=== PATIENT | male | born 1955 | race Caucasian/White ===

== ENCOUNTER 2019-04-05 23:09 | Inpatient (IN) | payer OTHER, MEDICARE, SELFPAY ==
[2019-04-05 23:15] VITALS: BMI 43.2
[2019-04-06] VITALS (13 sets, daily range): BP systolic 154–178; BP diastolic 90–102; PULSE 84–118; RESP 18–24; TEMP 36.6–36.7; O2SAT 90–96
--- NOTE | 2019-04-06 00:10 | USCV_ITS ---
Kenneth Nick Age: 63 Gender: M : 1955 Exam Date: 04/06/2019 13:04 Ordering Phys: Merlyn Love MD Technologist: Lucila Tony [place]am [place] [facility] [place]: CHF EXACERBATION BP: / HR: Rhythm: Sinus Technical Quality: Poor because of body habitus MEASUREMENTS (Male / Female) Normal Values 2D ECHO LV Diastolic Diameter PLAX 3.0 cm 4.2 - 5.9 / 3.9 - 5.3 cm LV Systolic Diameter PLAX 2.5 cm IVS Diastolic Thickness 1.9 cm 0.6 - 1.0 / 0.6 - 0.9 cm IVS Systolic Thickness 2.0 cm LVPW Diastolic Thickness 2.2 cm 0.6 - 1.0 / 0.6 - 0.9 cm LVPW Systolic Thickness 2.9 cm LVOT Diameter 2.0 cm LV Ejection Fraction 2D Teich 40.4 % LA Diameter 6.0 cm LA Width 4.1 cm LA Height 4.7 cm RA Width 3.2 cm RA Height 4.4 cm Aorta at Sinotubular Diameter 3.0 cm M-MODE LV Diastolic Diameter MM 5.1 cm 4.2 - 5.9 / 3.9 - 5.3 cm LV Systolic Diameter MM 3.6 cm LV Ejection Fraction MM Teich 55.3 % IVS Diastolic Thickness MM 1.4 cm 0.6 - 1.0 / 0.6 - 0.9 cm IVS Systolic Thickness MM 1.4 cm LVPW Diastolic Thickness MM 1.4 cm 0.6 - 1.0 / 0.6 - 0.9 cm LVPW Systolic Thickness MM 1.8 cm Aortic Annulus Diameter 3.5 cm LA Ao Ratio MM 1.7 MV E Point Septal Separation 0.6 cm DOPPLER AV Peak Velocity 157.0 cm/s LVOT Peak Velocity 108.0 cm/s AV Area Cont Eq vti 2.7 cm squared AV Area Cont Eq pk 2.2 cm squared MV Area PHT 7.6 cm squared Mitral E to A Ratio 5.0 MV E' Velocity 146.0 cm/s TR Peak Velocity 165.0 cm/s TR Peak Gradient 10.8 mmHg TV Peak E Velocity 74.0 cm/s Right Atrial Pressure 3.0 mmHg Pulmonary Artery Systolic Pressu 13.9 mmHg FINDINGS Left Ventricle Normal left ventricular cavity size. Normal left ventricular systolic function. No regional wall motion abnormalities. Left ventricular ejection fraction is estimated at 55 %. Grade III/IV diastolic dysfunction (restrictive filling pattern), severely elevated filling pressures. Right Ventricle Right Atrium Left Atrium Mitral Valve Aortic Valve Tricuspid Valve Pulmonic Valve Pericardium Aorta CONCLUSIONS Note that this is suboptimal quality study therefore for interpretation of studies not possible. 1-Normal left ventricular cavity size. Normal left ventricular systolic function. No regional wall motion abnormalities. Left ventricular ejection fraction is estimated at 55 %. Grade III/IV diastolic dysfunction (restrictive filling pattern), severely elevated filling pressures. 2-There is no pericardial effusion. 3-Cannot compared with prior exam due to suboptimal images Merlyn Alberto MD (Electronically Signed) Final Date: 06 April 2019 18:06 S
--- NOTE | 2019-04-06 00:20 | PM.HP ---
Providers/Chief Complaint Admitting Physician: Merlyn Love MD Primary Care Provider: GREG Hubbard Chief Complaint: Exacerbation of CHF History of Present Illness Nick Cooper is a 63 year old male carries diagnosis of preserved ejection fraction heart failure, hypothyroidism, obstructive sleep apnea, came in with chief complaint of shortness of breath. Patient is stating that his symptoms started on Thursday with shortness of breath which was happening at exertion initially then started happening at rest as well, he did not notice any chest pain, nausea, vomiting recent flulike symptoms, fever. He has been experiencing productive cough with yellow to greenish sputum production, he has not noticed any fever. He tries to watch his diet eats twice a day, he watches his fluid intake as well, does not take nxzz-[id number] medications. He has sleep apnea and uses CPAP on on and off basis but not daily. He is compliant with his medications no problem with urination or bowel movements. He decided to go to his PCP clinic because he was very hypoxic on 6 L at baseline he is using 2 L, he decided to go to [facility] where he was diagnosed with CHF exacerbation and was transferred to our hospital. Vitals at the other ER showed blood pressure 160/86, saturating 98% on room air initially heart rate 98, then required 4 L nasal cannula when his oxygen level dropped to 66%, temperature was normal, heart rate 113, White count 9.1 Globin 10 Platelet count 229 ABG 7.26/60 4/83 on 4 L nasal cannula Bicarb 29 INR 1 PTT 34 PT 13 Sodium 132 Potassium 4.6 Chloride 93 CO2 26 Calcium 9 BUN 37 Creatinine 1.5 Glucose 118 GFR 47 Alk phos 251 AST 22 ALT 13 BNP 1676 Magnesium 2.2 TSH 2.8 Influenza panel negative D-dimer 0.5 CRP 43 2-hour troponin 61 Delta 2-hour -4 Urinalysis color yellow pH 5 Negative leukoesterase and nitrite Protein trace positive Lactic acid 0.7 6-hour troponin 55 delta 6 hours -10 Chest x-ray shows pulmonary edema In the ER Patient was given 80 mg of Lasix, Nitro-Bid half-inch, methylprednisone 125 mg x 1, DuoNeb x1, oxycodone 20 mg x 1 When I evaluated the patient on our first floor he was on 4 L facemask, bilateral crackles with mild conversational dyspnea, he was eating a sandwich, family at the bedside, no active respiratory distress Review of Systems Const: Reports: body aches, change in weight, fatigue and malaise; Denies: fever, chills or change in appetite Eyes: Denies: change in vision ENMT: Denies: throat pain Card: Reports: edema and swelling of feet/ankles; Denies: chest pain, palpitations or irregular heart rhythm Resp: Reports: shortness of breath, productive cough and wheezing GI: Denies: abdominal pain or nausea : Denies: flank pain or difficulty urinating Musc: Denies: neck pain or back pain Skin/Breast: Denies: rash or itching Neuro: Denies: headache or numbness in extremities Psych: Denies: anxiety or depression Endo: Denies: excessive urination Sher/Lymph: Denies: easy bruising All/Imm: Denies: hives Medications/Allergies Home Medications Medication Instructions Recorded Confirmed Last Taken Type colchicine 0.6 mg PO BID 04/06/19 04/06/19 Unknown History metoprolol tartrate 100 mg PO BID 04/06/19 04/06/19 Unknown History Allergies Allergy/AdvReac Type Severity Reaction Status Date / Time ibuprofen [From Motrin] Allergy Unknown Verified 04/05/19 07:10 Influenza Virus Vaccines Allergy ALGY-Hives Verified 04/05/19 23:29 latex Allergy ALGY-Rash Verified 04/05/19 07:10 PFSH Acute PFSH: Statuses (acute, chronic, etc) shown below reflect problem list status as previously entered and may not be historically accurate Medical History (Updated 04/06/19 @ 00:59 by Merlyn Love MD) Anemia (Acute) Anxiety (Acute) CHF (congestive heart failure) (Acute) Chronic prescription opiate use (Acute) Diverticulosis (Acute) Duodenitis (Acute) Erectile dysfunction (Acute) Gastric ulcer (Acute) Heart failure with preserved ejection fraction (Acute) Hemoptysis (Acute) HTN (hypertension) (Acute) Hx of diverticulitis of colon (Acute) Hypothyroidism (Acute) Lumbar stenosis (Acute) Microcytic anemia (Acute) Morbid obesity (Acute) Obesity (Acute) Osteoarthritis (Acute) Peripheral neuropathy (Acute) Rotator cuff tear, right (Acute) Sleep apnea (Acute) Spinal cord stimulator status (Acute) Type 2 diabetes mellitus (Acute) Surgical History (Updated 04/05/19 @ 20:40 by Merlyn Love MD) History of back surgery (Acute) History of surgery on left wrist (Acute) History of total right hip replacement (Acute) History of total right knee replacement (Acute) Hx of circumcision (Acute) Family History (Updated 04/05/19 @ 20:42 by Merlyn Love MD) Grandfather Cancer Throat cancer Social History (Updated 04/05/19 @ 20:42 by Merlyn Love MD) Smoking and tobacco status: former smoker Alcohol intake: current Alcohol intake frequency: few times a week Household members: spouse Housing: House Vitals/I&O/Wt Weight last 48 hrs Weight 140.614 kg Physical Exam Narrative: EXAM NARRATIVE: Morbidly obese male, he was eating sandwich when I enter the room, he was on 4 L facemask, mild conversational dyspnea On lung auscultation diffuse crackles without active wheezing No active respiratory distress no use of respiratory sensory muscles, He has bloated abdomen, however soft, with obesity positive, bowel sounds present, Neurologically nonfocal exam, GCS 15 S1-S2 no active signs of murmur, hard to assess JVD but bilateral 1+ pitting edema extending up to his knees Appropriate mood and affect Skin does not show any signs of ischemia gangrene or ulcer A&P Assessment and plan (1) Acute exacerbation of congestive heart failure: Status: Acute Code(s): I50.9 - Heart failure, unspecified (2) Sleep apnea: Status: Acute Code(s): G47.30 - Sleep apnea, unspecified (3) COPD exacerbation: Status: Acute Code(s): J44.1 - Chronic obstructive pulmonary disease with (acute) exacerbation (4) Hypercapnic respiratory failure: Status: Acute Code(s): J96.92 - Respiratory failure, unspecified with hypercapnia (5) LORI (acute kidney injury): Status: Acute Code(s): N17.9 - Acute kidney failure, unspecified (6) Morbid obesity: Status: Acute Code(s): E66.01 - Morbid (severe) obesity due to excess calories (7) Hypothyroidism: Status: Acute Code(s): E03.9 - Hypothyroidism, unspecified Additional A&P Information Acute exacerbation of preserved ejection fraction heart failure secondary to underlying sleep apnea No chest pain, troponins with negative delta, We will get EKG Patient takes Lasix 40 mg at home I would use Bumex 1 mg twice a day for now, BNP 1600, clinically fluid overloaded He does not use [id number] medications, I believe his symptoms are secondary to worsening of sleep apnea with potential pulmonary hypertension causing worsening of heart failure BiPAP overnight Hypercarbic respiratory failure due to above-mentioned reasons: BiPAP for now Blood gas in a.m. Reduce the dose of anxiolytics I believe the symptoms are secondary to use of anxiolytics, gabapentin, obesity hypoventilation syndrome combination Morbid obesity with sleep apnea He is not very regular compliant with CPAP at home, I believe he needs another CPAP study to see if he qualifies for BiPAP because of his morbid obesity Acute kidney injury I would hold most of nephrotoxic agents, most likely secondary to prerenal due to CHF Monitor with BMP Hypothyroidism: Continue levothyroxine Borderline hyperglycemia with neuropathy due to spine injury I would reduce the dose of anxiolytics because of LORI DVT prophylaxis: Heparin Cardiac diet GI prophylaxis: Protonix Full code Attestations Medical Necessity Statement*: Admitting as inpatient because he might need more than 2 midnights because of hypercarbic respiratory failure, congestive heart failure, AK I Requiring higher dose of diuretics Bumex twice a day Time Spent in Patient Care: (>than 50% of time spent in counselling and/or direct pt care on unit). 55 Coding Level of Care Code Acute Psychosocial Rehabilitation Counselor for Candace Morris Diagnoses Acute exacerbation of congestive heart failure I50.9 Sleep apnea G47.30 COPD exacerbation J44.1 Hypercapnic respiratory failure J96.92 LORI (acute kidney injury) N17.9 Morbid obesity E66.01 Hypothyroidism E03.9
--- NOTE | 2019-04-06 00:24 | PC.NURSE ---
Patient arrived to the floor via EMS as direct admit. He is alert and oriented. He was on 4 L NC upon arrival to room. Oxygen saturation was 83%. Patient was placed on 6 L oxymask and is sating at 95%. Patient states his has a CPAP at home at night, but has not been wearing it lately. Patient states he also wears 2 L NC at home. Patient complains of 6/10 pain in hips and lower back, but states he just got an oxycodone at the other hospital and that this pain is tolerable because it is always a 6/10.
[2019-04-06] MEDS: heparin 5,000 unit/mL INJ 1 mL 5000 UNIT SUBCUT ×3 (01:32→17:31)
--- NOTE | 2019-04-06 01:39 | PC.NURSE ---
Patient is refusing Bipap at this time.
[2019-04-06] MEDS: ipratropium-albuterol 3 mL Neb INHALATION ×4 (02:05→20:07)
[2019-04-06 04:00] LABS: Basophils % 0.2 %; Hematocrit 36.7 % (42.0-52.0); Hemoglobin 10.7 g/dL (11.7-16.6); Lymphocytes # 0.7 10^3/uL (0.8-4.8); Lymphocytes % 12.4 %; Mean Corpuscular HGB Conc 29.2 g/dL (30.0-36.0); Mean Corpuscular Volume 82.5 fL (80-94); Mean Platelet Volume 9.5 fL (7.4-10.4); Monocytes # 0.4 10^3/uL (0.2-0.9); Monocytes % 5.9 %; Neutrophils # 4.8 10^3/uL (1.8-7.7); Neutrophils % 80.3 %; Nucleated Red Blood Cells # 0.1 /100WBC; Platelet Count 236 10^3/cmm (130-400); Red Blood Count 4.45 10^6/uL (4.1-5.3); Red Cell Distribution Width 18.5 % (12.1-15.1)
[2019-04-06 04:23] LABS: Alanine Aminotransferase 14 U/L (0-41); Albumin Level 3.4 g/dL (3.5-5.2); Alkaline Phosphatase 51 IU/L (40-130); Anion Gap 17.5 (5-19); Aspartate Amino Transferase 23 U/L (0-40); Blood Urea Nitrogen 27 mg/dL (8-23); Calcium 9.6 mg/dL (8.5-10.5); Carbon Dioxide 28 mmol/L (22-29); Chloride 97 mmol/L (98-107); Globulin 3.9 g/dL (1.3-4.6); Glomerular Filtration Rate 55.6 mL/min (90-130); Glucose 151 mg/dL (74-106); Potassium 4.5 mmol/L (3.5-5.1); Sodium 138 mmol/L (136-145); Thyroid Stimulating Hormone 0.72 uIU/mL (0.27-4.20); Total Bilirubin 0.3 mg/dL (0.15-1.2); Total Protein 7.3 g/dL (6.6-8.7)
[2019-04-06 04:54] LABS: Slide Review Slide Review Perform
[2019-04-06 06:42] LABS: Glucose Point of Care 133 mg/dL (70-110)
--- NOTE | 2019-04-06 06:58 | PC.NURSE ---
Patient has been educated to use the urinal in order to measure output. Patient voided 3 times last night and did not use the urinal.
[2019-04-06] MEDS: allopurinol 100 mg Tablet 200 MG PO (09:39)
[2019-04-06] MEDS: pantoprazole DR 40 mg Tablet 20 MG PO (09:39)
[2019-04-06] MEDS: bumetanide 1 mg Tablet PO (09:39)
[2019-04-06] MEDS: levothyroxine 50 mcg Tablet PO (09:39)
--- NOTE | 2019-04-06 10:57 | PC.CHAP ---
Pastoral Care Encounter/Spiritual Assessment Type of Contact [] Declined clean rice grader and reel tender visit [] Patient/Family/Request visit [] Outpatient visit [] Follow-up visit [] Physician referral [] Code/Alert [x] Routine visit [] Staff referral [] Actively dying [] Patient sleeping [x] Family support [] [] Out of room [] Palliative care [] [] Receiving care in room [] Pre-surgical visit [] Trauma [] Long length of stay [] ICU visit [] Other: Relational/Emotional Strength [] Patient feels connected with others/family/visitors/staff [] Distress [] Loneliness/isolation [] Abandonment Spirituality of Patient [] Person of Ratna [] Attends Amish of their [place] [x] Believes in Prayer [] Reads Bible or Scientology materials [] There are Spiritual issues to be addressed Ophthalmic Medical Technician Interventions [x] Prayer [] Active listening [] Non-anxious presence [] Spiritual/emotional support [] Crisis/trauma care [] Spiritual counseling [] Bereavement support [] Provided bereavement packet [] Provided Bible/devotional materials [] Provided toy/stuffed animal, coloring book to patient or family member [x] Completed spiritual assessment [] Provided Communion [] Anointing/[place] [] Salvation [] Other: Impact on Illness or Injury [] Angry [] Fearful [] Anxious [] Often cries [] Exhaustion [] Unable to work [] Unable to attend adventist [] Unable to walk/stand [] Unable to read [] Unable to drive [] Unable to eat/drink [x] Unable to sleep [] Unable to be with family [x] Other: Patient in the hurriedness of going to [facility] emergency, left all medication at home. Summary staying very close to Patient. Patient has not slept . Randell asked staff to check into Patients mediations. Time spent with patient 15 min
[2019-04-06] MEDS: oxyCODONE 5 mg IR Tab/Cap 10 MG PO (11:24)
[2019-04-06 11:28] LABS: Glucose Point of Care 109 mg/dL (70-110)
[2019-04-06] MEDS: sucralfate 1 gm Tablet PO ×2 (14:58→22:13)
[2019-04-06] MEDS: FUROsemide 10 mg/mL SDV 4mL 40 MG IVP (14:58)
[2019-04-06] MEDS: cholecalciferol (vitamin D3) 1,000 unit Tablet 1000 UNIT PO (14:58)
[2019-04-06 15:30] LABS: NT Pro B Type Natriuretic Pept 2392 pg/mL (0-125); Procalcitonin 0.16 ng/mL (0-0.5); Thyroid Stimulating Hormone 1.23 uIU/mL (0.27-4.20)
[2019-04-06 15:41] LABS: Iron 17 ug/dL (59-158); Percent Saturation 4.2 % (20-50); Total Iron Binding Capacity 400 mcg/dl; Unsaturated Iron Binding 383 ug/dL (112-347)
[2019-04-06 16:20] LABS: Glucose Point of Care 118 mg/dL (70-110)
[2019-04-06 16:52] LABS: Influenza A by IFA Negative (Negative); Influenza B by IFA Negative (Negative)
[2019-04-06] MEDS: colchicine 0.6 mg Tablet PO (17:31)
[2019-04-06] MEDS: metoprolol tartrate 50 mg Tablet PO (17:31)
--- NOTE | 2019-04-06 18:47 | P.PN_ITS ---
Subjective Subjective: Interval history: Admitted overnight. History and physical and labs noted. On evaluation this morning patient is sitting up in bed complaining of shortness of breath and is having nonrebreather mask at 5 L nasal cannula for saturating over 94%. Patient is complaining of shortness of breath on exertion and on lying down along with cough but denies of having any nausea, vomiting, palpitations, headache. Patient's telemetry shows sinus tachycardia going up to 130s overnight. Patient otherwise is hemodynamically stable. Medications: Reviewed: Yes Medication Review Details: Home medications have not been started yet. Vitals/I&O/Wt Last Vital Signs Temp 98.0 F 04/06/19 15:53 Pulse 88 04/06/19 15:55 Resp 20 H 04/06/19 15:55 BP 154/90 04/06/19 15:53 Pulse Ox 92 04/06/19 15:55 04/06/19 04/06/19 04/06/19 06:59 14:59 22:59 Intake Total 230 / 230 240 / 240 Output Total 600 / 600 800 / 1400 Balance 230 / 230 -360 / -360 -800 / -1160 Weight last 48 hrs Weight 140.614 kg Physical Exam Narrative: EXAM NARRATIVE: Morbidly obese male, he was eating sandwich when I enter the room, he was on 5 L facemask, mild conversational dyspnea On lung auscultation diffuse crackles all over the lung trejo without active wheezing No active respiratory distress no use of respiratory sensory muscles, He has bloated abdomen, however soft, with obesity positive, bowel sounds pre sent, Neurologically nonfocal exam, GCS 15 S1-S2 no active signs of murmur, hard to assess JVD but bilateral 1+ pitting edema extending up to his knees Appropriate mood and affect Skin does not show any signs of ischemia gangrene or ulcer Data : 04/07/19 06:27 04/07/19 06:27 A&P Assessment and plan (1) Acute exacerbation of congestive heart failure: Status: Acute Code(s): I50.9 - Heart failure, unspecified (2) Sleep apnea: Status: Acute Code(s): G47.30 - Sleep apnea, unspecified (3) COPD exacerbation: Status: Acute Code(s): J44.1 - Chronic obstructive pulmonary disease with (acute) exacerbation (4) Hypercapnic respiratory failure: Status: Acute Code(s): J96.92 - Respiratory failure, unspecified with hypercapnia (5) LORI (acute kidney injury): Status: Acute Code(s): N17.9 - Acute kidney failure, unspecified (6) Hypothyroidism: Status: Acute Code(s): E03.9 - Hypothyroidism, unspecified Additional A&P Information Hypercarbic respiratory failure: MOst likley due to Acute exacerbation of Diastolic heart failure along with JONAH No inflitrate on Cxr, fever. Check Probnp, procal. Will change bumex to IV lasix 40 mg BID as kidney functions slightly deranged. Daily weights. Intake and output charting. Fluid restriction to 1.5 lts. ECHO already ordered Bipap QHS C/w Reduction the dose of anxiolytics Duonebs round the clock and budesonide BID. No real wheeze so will hold off on steroids for now. Check iron panel. For now will increase ferrous sulfate to daily. Having tachycardia so will start on home dose of metoprolol. Morbid obesity with sleep apnea He is not very regular compliant with CPAP at home. Will continue to careers counsellor. Acute kidney injury: Most likely from CRS. Avoid nephrotoxic drugs. Meds reconciled. Monitor with BMP daily. Hypothyroidism: Continue levothyroxine C/w home dose of amytriptiline to avoid withdrawal, decrease cyclobenzaprine and will hold off on oxycodone and will decrease dose of gabapentin. DVT prophylaxis: Heparin Cardiac diet GI prophylaxis: Protonix Full code Attestations Medical Necessity Statement*: Needs further hospitalization for Resp failure due to CHF Time Spent in Patient Care: Greater than 35 minutes Coding Level of Care Code Acute Chief Cloth Finishing Range Operator for Candace Morris Diagnoses Acute exacerbation of congestive heart failure I50.9 Sleep apnea G47.30 COPD exacerbation J44.1 Hypercapnic respiratory failure J96.92 LORI (acute kidney injury) N17.9 Hypothyroidism E03.9
--- NOTE | 2019-04-06 19:07 | P.CONIM_ITS ---
Providers/Reason For Consult Consulting Physican/Specialty*: Cardiology Reason for Consult*: Respiratory failure CHF exacerbation Attending Physician: Magdi Lu MD Primary Care Provider: GREG Hubbard History of Present Illness History of Present Illness Nick Cooper is a 63 year old male Whom I have seen in my clinic in June 2018 for the first and only time When he was referred to us for continuity of care after hospital discharge . He was admitted At that time for CHF and COPD exacerbation. CHF was newly diagnosed. He was ruled out for coronary artery disease with stress test then. Echocardiogram was not performed during the hospital stay. In my clinic his medicines were optimized however he did not follow-up on his treatment. Last night [facility] transferred him to [facility] for worsening of shortness of breath. According to the patient for the past couple of weeks he has been having productive sputum and cough. He also admits to PND orthopnea but denies chest pain. He was taking 40 mg of Lasix. He continues to smoke unfortunately. He was given 80 mg of IV Lasix at [facility]. Review of Systems Const: Reports: body aches, change in weight, fatigue and malaise; Denies: fever, chills or change in appetite Eyes: Denies: change in vision ENMT: Denies: throat pain Card: Reports: edema and swelling of feet/ankles; Denies: chest pain, palpitations or irregular heart rhythm Resp: Reports: shortness of breath, productive cough and wheezing GI: Denies: abdominal pain or nausea : Denies: flank pain or difficulty urinating Musc: Denies: neck pain or back pain Skin/Breast: Denies: rash or itching Neuro: Denies: headache or numbness in extremities Psych: Denies: anxiety or depression Endo: Denies: excessive urination Sher/Lymph: Denies: easy bruising All/Imm: Denies: hives Meds/Allergies Home Medications and Allergies Home Medications Medication Instructions Recorded Confirmed Type albuterol sulfate 2.5 mg INHALATION QID PRN 04/05/19 04/06/19 History alprazolam 0.25 - 0.5 mg PO DAILY 04/05/19 04/06/19 History amitriptyline 25 mg PO BEDTIME 04/05/19 04/06/19 History cyclobenzaprine 10 mg PO TID 04/05/19 04/06/19 History ferrous sulfate 325 mg PO EVERY OTHER DAY 04/05/19 04/06/19 History furosemide 40 mg PO DAILY 04/05/19 04/06/19 History gabapentin 800 mg PO TID 04/05/19 04/06/19 History levothyroxine 50 mcg PO DAILY 04/05/19 04/06/19 History pantoprazole 40 mg PO DAILY 04/05/19 04/06/19 History sucralfate 1 g PO TID 04/05/19 04/06/19 History testosterone 200 mg SUBCUT Q14D 04/05/19 04/06/19 History budesonide-formoterol 2 puff INHALATION BID 04/06/19 04/06/19 History cholecalciferol (vitamin D3) 1,000 units PO DAILY 04/06/19 04/06/19 History colchicine 0.6 mg PO BID 04/06/19 04/06/19 History metoprolol tartrate 50 mg PO BID 04/06/19 04/06/19 History oxycodone 15 mg PO Q4H PRN 04/06/19 04/06/19 History Allergies Allergy/AdvReac Type Severity Reaction Status Date / Time ibuprofen [From Motrin] Allergy Unknown Verified 04/05/19 07:10 Influenza Virus Vaccines Allergy ALGY-Hives Verified 04/05/19 23:29 latex Allergy ALGY-Rash Verified 04/05/19 07:10 Current Medications Current Medications Generic Name Dose Route Start Last Admin Trade Name Freq PRN Reason Stop Dose Admin Albuterol/Ipratropium 3 ml 04/06/19 00:10 04/06/19 08:58 Duoneb INHALATION 3 ml Q4H PRN Administration SHORTNESS OF BREATH Albuterol/Ipratropium 3 ml 04/06/19 15:00 04/06/19 15:48 Duoneb INHALATION 3 ml Q6H.RESPIRATORY CANDACE Administration Allopurinol 200 mg 04/06/19 09:00 04/06/19 09:39 Zyloprim PO 200 mg DAILY CANDACE Administration Colchicine 0.6 mg 04/06/19 18:00 04/06/19 17:31 Colcrys PO 0.6 mg BID CANDACE Administration Cyclobenzaprine HCl 10 mg 04/06/19 18:00 04/06/19 17:31 Flexeril PO Not Given BID CANDACE Furosemide 40 mg 04/06/19 14:15 04/06/19 14:58 Lasix IVP 40 mg Q12H CANDACE Administration Heparin Sodium (Beef Lung) 5,000 unit 04/06/19 00:15 04/06/19 17:31 Heparin SUBCUT 5,000 unit Q8H CANDACE Administration Levothyroxine Sodium 50 mcg 04/06/19 09:00 04/06/19 09:39 Synthroid PO 50 mcg DAILY CANADCE Administration Metoprolol Tartrate 50 mg 04/06/19 18:00 04/06/19 17:31 Lopressor PO 50 mg BID CANDACE Administration Pantoprazole Sodium 20 mg 04/06/19 09:00 04/06/19 09:39 Protonix PO 20 mg DAILY CANDACE Administration Sucralfate 1 gm 04/06/19 15:00 04/06/19 14:58 Carafate PO 1 gm TID CANDACE Administration Vitamin D 1,000 unit 04/06/19 15:00 04/06/19 14:58 Vitamin D3 PO 1,000 unit DAILY CANDACE Administration PFSH Acute PFSH: Statuses (acute, chronic, etc) shown below reflect problem list status as previously entered and may not be historically accurate Medical History (Updated 04/06/19 @ 19:18 by Merlyn Alberto MD) Anemia (Acute) Anxiety (Acute) CHF (congestive heart failure) (Acute) Chronic prescription opiate use (Acute) Diverticulosis (Acute) Duodenitis (Acute) Erectile dysfunction (Acute) Gastric ulcer (Acute) Heart failure with preserved ejection fraction (Acute) Hemoptysis (Acute) HTN (hypertension) (Acute) Hx of diverticulitis of colon (Acute) Hypothyroidism (Acute) Lumbar stenosis (Acute) Microcytic anemia (Acute) Morbid obesity (Acute) Obesity (Acute) Osteoarthritis (Acute) Peripheral neuropathy (Acute) Rotator cuff tear, right (Acute) Sleep apnea (Acute) Spinal cord stimulator status (Acute) Type 2 diabetes mellitus (Acute) Surgical History History of back surgery (Acute) History of surgery on left wrist (Acute) History of total right hip replacement (Acute) History of total right knee replacement (Acute) Hx of circumcision (Acute) Family History Grandfather Cancer Throat cancer Social History Smoking and tobacco status: former smoker Alcohol intake: current Alcohol intake frequency: few times a week Household members: spouse Housing: House Vitals/I&O/Wt Last Vital Signs Temp 98.0 F 04/06/19 15:53 Pulse 88 04/06/19 15:55 Resp 20 H 04/06/19 15:55 BP 154/90 04/06/19 15:53 Pulse Ox 92 04/06/19 15:55 04/06/19 04/06/19 04/06/19 06:59 14:59 22:59 Intake Total 230 / 230 240 / 240 Output Total 600 / 600 1200 / 1800 Balance 230 / 230 -360 / -360 -1200 / -1560 Weight last 48 hrs Weight 310 lb Physical Exam Narrative: EXAM NARRATIVE: GENERAL: Patient is short of breath and sitting. NECK: No jugular vein distension. HEENT: No cyanosis. No icterus. No pallor. HEART: Regular S1 and S2. No murmur, rub or gallop. LUNGS: Decreased breath sound bilaterally with prolonged expiration. ABDOMEN: Soft, nontender and nondistended. Positive bowel sounds. No guarding, rebound or tenderness. CENTRAL NERVOUS SYSTEM: Grossly nonfocal. EXTREMITIES: Lower extremities trace edema A&P Assessment and plan (1) COPD exacerbation: Mixed picture of COPD exacerbation/CHF. Continue as per medicine for COPD Status: Acute Code(s): J44.1 - Chronic obstructive pulmonary disease with (acute) exacerbation (2) LORI (acute kidney injury): Continue to monitor closelyWith diuresis. Status: Acute Code(s): N17.9 - Acute kidney failure, unspecified (3) Acute exacerbation of congestive heart failure: Continue diuresis as per plan with [employer]um[employer] Status: Acute Code(s): I50.9 - Heart failure, unspecified Consult Attestations Medical Necessity Statement: Patient regarding continuation hospitalization for above defined care. Coding Level of Care Code New Pt Acute Teacher Lip Reading for Chg Fwd Patient Type New History Expanded Problem Focused Exam Expanded Problem Focused Medical Decision Making Moderate Complexity Diagnoses COPD exacerbation J44.1 LORI (acute kidney injury) N17.9 Acute exacerbation of congestive heart failure I50.9
[2019-04-06] MEDS: budesonide 0.5 mg/2 mL Neb INHALATION (20:07)
[2019-04-06 21:33] LABS: Glucose Point of Care 127 mg/dL (70-110)
[2019-04-06] MEDS: amitriptyline 25 mg Tablet PO (22:13)
[2019-04-06] MEDS: cyclobenzaprine 10 mg Tablet PO (22:13)
[2019-04-07] VITALS (18 sets, daily range): BP systolic 146–171; BP diastolic 92–113; PULSE 72–120; RESP 17–38; TEMP 36.6–36.8; O2SAT 89–96
[2019-04-07] MEDS: heparin 5,000 unit/mL INJ 1 mL 5000 UNIT SUBCUT ×4 (00:33→23:19)
[2019-04-07] MEDS: LORazepam 0.5 mg Tablet 0.25 MG PO (02:04)
--- NOTE | 2019-04-07 02:17 | PC.NURSE ---
Dr. Love notified of patient stating that he is very short of breath. Respiratory therapist attempt to but him on Bipap and patient could not tolerate. Patient stated I have bad anxiety. PO Ativan ordered and given. Will continue to monitor.
[2019-04-07] MEDS: ipratropium-albuterol 3 mL Neb INHALATION ×4 (02:55→20:33)
--- NOTE | 2019-04-07 05:02 | PC.NURSE ---
Patient is coughing up a lot of sputum. Patient oxygen saturation is 92% on oxymask. Patient states he feels short of breath, but is refusing Bipap. Patient slept for a short amount of time after receiving Ativan, but still seems to be very anxious.
[2019-04-07] MEDS: FUROsemide 10 mg/mL SDV 4mL 40 MG IVP ×2 (05:17→17:19)
--- NOTE | 2019-04-07 05:34 | PC.NURSE ---
Patient is very short of breath and very restless. Dr. Love came to see patient. Patient is still refusing Bipap after education from nurse and doctor. Patient is on oxymask. Patient continues to frequently pull telemetry leads and oxygen saturation probe off due to restlessness. Will check on patient frequently.
[2019-04-07 06:30] LABS: Basophils % 0.1 %; Hematocrit 36.1 % (42.0-52.0); Hemoglobin 10.6 g/dL (11.7-16.6); Lymphocytes # 1.3 10^3/uL (0.8-4.8); Lymphocytes % 9.9 %; Mean Corpuscular HGB Conc 29.4 g/dL (30.0-36.0); Mean Corpuscular Hemoglobin 23.3 pg (28.0-34.0); Mean Corpuscular Volume 79.5 fL (80-94); Mean Platelet Volume 9.6 fL (7.4-10.4); Monocytes # 0.9 10^3/uL (0.2-0.9); Monocytes % 6.4 %; Neutrophils # 11.2 10^3/uL (1.8-7.7); Neutrophils % 83.1 %; Nucleated Red Blood Cells % 0.2 %; Platelet Count 260 10^3/cmm (130-400); Red Blood Count 4.54 10^6/uL (4.1-5.3); Red Cell Distribution Width 18.8 % (12.1-15.1); White Blood Count 13.5 10^3/uL (4.0-10.0)
[2019-04-07 06:45] LABS: Alanine Aminotransferase 12 U/L (0-41); Albumin Level 3.2 g/dL (3.5-5.2); Alkaline Phosphatase 46 IU/L (40-130); Anion Gap 16.7 (5-19); Aspartate Amino Transferase 20 U/L (0-40); Blood Urea Nitrogen 21 mg/dL (8-23); Calcium 9.8 mg/dL (8.5-10.5); Carbon Dioxide 31 mmol/L (22-29); Chloride 95 mmol/L (98-107); Creatinine Clr Calc Pharmacy 107.0604; Glomerular Filtration Rate 75.2 mL/min (90-130); Glucose 136 mg/dL (74-106); Potassium 3.7 mmol/L (3.5-5.1); Sodium 139 mmol/L (136-145); Total Bilirubin 0.5 mg/dL (0.15-1.2); Total Protein 7.2 g/dL (6.6-8.7)
[2019-04-07 07:27] LABS: Estmated Average Glucose 134; Hemoglobin A1C 6.3 % (4.0-6.0)
--- NOTE | 2019-04-07 08:09 | CTR_ITS ---
PROCEDURE INFORMATION: Exam: CT Chest Without Contrast Exam date and time: 04/07/2019 1:00 PM Age: 63 years old Clinical indication: Other: Copd; Additional info: Copd/pna TECHNIQUE: Imaging protocol: Computed tomography of the chest without contrast. Total DLP: 926.16 mGy-cm Radiation optimization: All CT scans at this facility use at least one of these dose optimization techniques: automated exposure control; mA and/or kV adjustment per patient size (includes targeted exams where dose is matched to clinical indication); or iterative reconstruction. COMPARISON: CTA Chest-Pulmonary Emb [id number] 12/08/2018 5:56 PM FINDINGS: Lungs: Patchy infiltrates in both lower lobes more pronounced and confluent on the right consistent with pneumonia. Pleural space: Unremarkable. No pneumothorax. No pleural effusion. Heart: Mild cardiomegaly. Aorta: Unremarkable. No aortic aneurysm. Lymph nodes: Unremarkable. No enlarged lymph nodes. Kidneys and ureters: 9 x 7 cm right renal upper pole simple appearing cyst. Bones/joints: Lower cervical and lower thoracic spine degenerative disc changes, chronic. Dorsal spinal stimulator in place. Soft tissues: Unremarkable. CT/CT chest con [id number] IMPRESSION: 1.) Patchy infiltrates in both lower lobes more pronounced and confluent on the right consistent with pneumonia. 2.) Additional chronic findings as described above. Radiation Dose CTDIVOL = (mGy): DLP = 926.16 (mGy-cm)
--- NOTE | 2019-04-07 08:34 | PC.NURSE ---
UPON FIRST ASSESSMENT OF PATIENT, HE IS NOTABLY ANXIOUS AND AGITATED. PATIENT ASKED WHAT WOULD BE REQUIRED FOR HIM TO GO TO [facility] IN [place]. NURSE EXPLAINED THE TRANSFER PROCESS, BUT THAT HIS CARE COULD BE PROVIDED HERE AT [facility]. NURSE ASKED PATIENT TO EXPLAIN HIS COMPLAINTS AND CONCERNS TO HER SO THAT THE STAFF MAY TRY TO REMEDY IT. PATIENT VOICED THAT HE HADN'T BEEN REGULARLY RECEIVING HIS PAIN MEDICATIONS, THAT HE COULDN'T TOLERATE THE BIPAP MACHINE. NURSE EXPLAINED THE IMPORTANCE AND FUNCTIONS OF THE BIPAP FOR HIS BREATHING. NURSE ALSO REASSURED ALL HIS CONCERNS WOULD BE DISCUSSED WITH HIS PHYSICIAN. DR. BYNUM NOTIFIED.
--- NOTE | 2019-04-07 08:55 | P.PN_ITS ---
Subjective Subjective: Interval history: Covering for Dr. Alberto today. Nick was admitted 2 days ago with shortness of breath, cough and respiratory insufficiency. He has been diagnosed with COPD and CHF exacerbations. His BNP was 2392. His echocardiogram was essentially uninterpretable due to his massive obesity. A rough estimate of the ejection fraction would have been 55% with grade 3 di astolic dysfunction. He has an underlying left bundle branch block. The chart states that his troponins are negative but I do not see those listed under the lab section. He continues to be short of breath with a productive cough and wheezing. His blood pressure now is 171/113. He is being treated with a beta- toni, subcutaneous heparin and intravenous Lasix 40 mg twice a day. He has apparently had a negative stress testing in the past. He also has had a worsening of his renal function. His glomerular filtration rate is 75 mL/min. He is a smoker with COPD and sleep apnea. He is also a diabetic with hypertension. Medications: Reviewed: Yes Vitals/I&O/Wt Last Vital Signs Temp 98.1 F 04/07/19 07:45 Pulse 99 04/07/19 07:45 Resp 18 04/07/19 07:45 BP 171/113 04/07/19 07:45 Pulse Ox 96 04/07/19 07:45 04/06/19 04/07/19 04/07/19 22:59 06:59 14:59 Intake Total 500 / 740 240 / 240 Output Total 1650 / 2250 Balance -1649 / 500 / -1510 240 / 240 Weight last 48 hrs Weight 310 lb Physical Exam Narrative: EXAM NARRATIVE: GENERAL: In general he looks uncomfortable and short of breath and is coughing HEENT: Exam within normal limits. NECK: Supple without jugular vein distention. The carotid upstroke is normal without bruits. BACK: Exam normal. LUNGS: Decreased breath sounds bilaterally with wheezing and rhonchi HEART: Regular rate and rhythm. ABDOMEN: Benign without organomegaly or tenderness. EXTREMITIES: No edema. NEUROLOGIC: Exam normal. SKIN: Unremarkable. Data : 04/07/19 06:27 04/07/19 06:27 A&P Assessment and plan (1) LORI (acute kidney injury): Status: Acute Code(s): N17.9 - Acute kidney failure, unspecified (2) Hypercapnic respiratory failure: Status: Acute Code(s): J96.92 - Respiratory failure, unspecified with hypercapnia (3) COPD exacerbation: Status: Acute Code(s): J44.1 - Chronic obstructive pulmonary disease with (acute) exacerbation (4) Sleep apnea: Status: Acute Code(s): G47.30 - Sleep apnea, unspecified (5) Acute exacerbation of congestive heart failure: Status: Acute Code(s): I50.9 - Heart failure, unspecified (6) Tobacco abuse: Status: Acute Code(s): Z72.0 - Tobacco use (7) HTN (hypertension): Status: Acute Code(s): I10 - Essential (primary) hypertension (8) Type 2 diabetes mellitus: Status: Acute Code(s): E11.9 - Type 2 diabetes mellitus without complications Additional A&P Information He needs an SHILO inhibitor. His blood pressure is high and he is not on any afterload reducing agents with congestive heart failure. We will keep him on IV Lasix for today. Still struggling with shortness of breath and cough. Attestations Medical Necessity Statement*: Not applicable Time Spent in Patient Care: Greater than 35 minutes Coding Level of Care Code Acute Hat Blocking Machine Operator for Chg Fwd History Comprehensive Exam Comprehensive Medical Decision Making High Complexity Diagnoses LORI (acute kidney injury) N17.9 Hypercapnic respiratory failure J96.92 COPD exacerbation J44.1 Sleep apnea G47.30 Acute exacerbation of congestive heart failure I50.9 Tobacco abuse Z72.0 HTN (hypertension) I10 Type 2 diabetes mellitus E11.9 Time Spent (min) 60
[2019-04-07] MEDS: budesonide 0.5 mg/2 mL Neb INHALATION ×2 (09:06→20:33)
[2019-04-07] MEDS: gabapentin 400 mg Capsule PO ×2 (09:30→17:20)
[2019-04-07] MEDS: metoprolol tartrate 50 mg Tablet PO ×2 (09:30→17:20)
[2019-04-07] MEDS: oxyCODONE 5 mg IR Tab/Cap 10 MG PO ×3 (09:30→23:19)
[2019-04-07] MEDS: lisinopril 10 mg Tablet PO (09:30)
[2019-04-07] MEDS: pantoprazole DR 40 mg Tablet PO (09:30)
[2019-04-07] MEDS: sucralfate 1 gm Tablet PO ×3 (09:30→21:14)
[2019-04-07] MEDS: levothyroxine 50 mcg Tablet PO (09:31)
[2019-04-07] MEDS: allopurinol 100 mg Tablet 200 MG PO (09:31)
[2019-04-07] MEDS: cholecalciferol (vitamin D3) 1,000 unit Tablet 1000 UNIT PO (09:31)
[2019-04-07 12:08] LABS: Glucose Point of Care 131 mg/dL (70-110)
--- NOTE | 2019-04-07 14:31 | P.PN_ITS ---
Subjective Subjective: Interval history: No acute events overnight other than the fact that patient was little restless for which he was given 1 dose of Ativan. This morning on evaluation patient is sitting at side of the bed with oxygen mask at 3 L. He states his shortness of breath has improved but is still there. He is anxious regarding his chronic pain medications. Patient's family are at bedside as well and all their questions have been answered. Patient denies of having any nausea, vomiting, headache, abdominal pain, dizziness, loss of consciousness. Patient tolerated CPAP at 8 overnight. Medications: Reviewed: Yes Medication Review Details: Home medications have not been started yet. Vitals/I&O/Wt Last Vital Signs Temp 97.8 F 04/07/19 11:46 Pulse 73 04/07/19 11:46 Resp 18 04/07/19 11:46 BP 164/98 04/07/19 11:46 Pulse Ox 96 04/07/19 11:46 04/06/19 04/07/19 04/07/19 22:59 06:59 14:59 Intake Total 500 / 740 480 / 480 Output Total 1650 / 2250 Balance -1649 500 / -1510 480 / 480 Weight last 48 hrs Weight 139.616 kg Weight 140.614 kg Physical Exam Narrative: EXAM NARRATIVE: General: No acute distress, AO x3, morbidly obese, anxious HEENT: PERRLA, pupils bilaterally equal and reactive Chest: Decreased breath sounds bilaterally lower zones, normal vesicular breath sounds, fine rhonchi all over the lung trejo right more than left posterior more than anterior but better than yesterday. CVS: S1-S2 regular, no murmurs, no tachycardia, no gallops, no rubs Abdomen: Soft, nontender, no organomegaly, bowel sounds present Neuro: No focal deficits, no facial deformity, AO x3, power 5/5 in all limbs Data : 04/07/19 06:27 04/07/19 06:27 A&P Assessment and plan (1) Acute exacerbation of congestive heart failure: Status: Acute Code(s): I50.9 - Heart failure, unspecified (2) Sleep apnea: Status: Acute Code(s): G47.30 - Sleep apnea, unspecified (3) COPD exacerbation: Status: Acute Code(s): J44.1 - Chronic obstructive pulmonary disease with (acute) exacerbation (4) Hypercapnic respiratory failure: Status: Acute Code(s): J96.92 - Respiratory failure, unspecified with hypercapnia (5) LORI (acute kidney injury): Status: Acute Code(s): N17.9 - Acute kidney failure, unspecified (6) Hypothyroidism: Status: Acute Code(s): E03.9 - Hypothyroidism, unspecified Additional A&P Information Hypercarbic respiratory failure: MOst likley due to Acute exacerbation of Diastolic heart failure along with JONAH Acute exacerbation of diastolic heart failure: Most likely due to noncompliance to CPAP along with anemia. No inflitrate on Cxr, fever. proBNP elevated but pro-Anupam negative. As per the chart and last 24 hours he is around 800 cc negative though he states there were times when he had discarded his urine on his own. As per the chart he is 1 kg lower than on admission. Continue with IV Lasix 40 mg twice daily. As per the outpatient medication patient is on Lopressor but is not on any SHILO inhibitor. Creatinine functions improving today. If continues to remain stable can add from tomorrow morning. Continue with home dose of Lopressor. Daily weights. Intake and output charting. Fluid restriction to 1.5 lts. Echo results appreciated. CPAP QHS Duonebs round the clock and budesonide BID. No real wheeze so will hold off on steroids for now. Iron panel today suggestive of severe iron deficiency anemia. We will start him on Venofer. Morbid obesity with sleep apnea Was able to tolerate CPAP overnight. We will continue to consult. Acute kidney injury: Resolved. Creatinine back to baseline. Most likely from CRS.Avoid nephrotoxic drugs. Meds reconciled. Monitor with BMP daily. Hypertension: Blood pressure continues to remain on the higher side. Can add SHILO inhibitor for tomorrow morning if creatinine remains stable. For now can give him hydralazine as needed. Anemia: Blood work suggestive of severe iron deficiency anemia. Can be contri buting to CHF. We will start him on Venofer. We will also check stool for occult blood. Hypothyroidism: Continue levothyroxine C/w home dose of amytriptiline to avoid withdrawal, decrease cyclobenzaprine Patient takes OxyContin 15 mg every 4 hours 1 to 2 tablets. We will decrease the dose to OxyContin 10 mg every 6 hours as needed. We will decrease gabapentin to 400 mg twice daily. Patient has been made aware of these changes and the reason for these changes. He and his family verbalizes the understanding. DVT prophylaxis: Heparin Cardiac diet GI prophylaxis: Protonix Full code Attestations Medical Necessity Statement*: Needs continued hospitalization for management of diastolic heart failure Time Spent in Patient Care: Greater than 35 minutes (>than 50% of time spent in counselling and/or direct pt care on unit) . Coding Level of Care Code Acute Contract Post Office Clerk for Candace Morirs Diagnoses Acute exacerbation of congestive heart failure I50.9 Sleep apnea G47.30 COPD exacerbation J44.1 Hypercapnic respiratory failure J96.92 LORI (acute kidney injury) N17.9 Hypothyroidism E03.9
[2019-04-07 16:59] LABS: Glucose Point of Care 135 mg/dL (70-110)
[2019-04-07] MEDS: guaiFENesin-dextromethorphan UDC 10 mL PO (21:14)
[2019-04-07] MEDS: amitriptyline 25 mg Tablet PO (21:14)
[2019-04-07 21:42] LABS: Glucose Point of Care 144 mg/dL (70-110)
[2019-04-07] MEDS: diphenhydrAMINE 12.5 mg/5 mL UDC 10 mL PO (23:20)
[2019-04-08] VITALS (8 sets, daily range): BP systolic 146–177; BP diastolic 89–98; PULSE 77–104; RESP 14–24; TEMP 36.7–36.8; O2SAT 83–93; BMI 42.9
[2019-04-08 04:47] LABS: Alanine Aminotransferase 13 U/L (0-41); Albumin Level 2.9 g/dL (3.5-5.2); Alkaline Phosphatase 41 IU/L (40-130); Anion Gap 14.4 (5-19); Aspartate Amino Transferase 21 U/L (0-40); Blood Urea Nitrogen 16 mg/dL (8-23); Calcium 9.5 mg/dL (8.5-10.5); Carbon Dioxide 33 mmol/L (22-29); Chloride 95 mmol/L (98-107); Globulin 4.1 g/dL (1.3-4.6); Glucose 104 mg/dL (74-106); Potassium 3.4 mmol/L (3.5-5.1); Sodium 139 mmol/L (136-145); Total Bilirubin 0.4 mg/dL (0.15-1.2)
--- NOTE | 2019-04-08 05:10 | PC.NURSE ---
Patient reports being very upset this morning. Patient was sleeping very soundly when public health engineer came in to the room to draw am labs. According to patient's spouse they announced they were here to draw blood. Patient stated, I woke up afraid because I felt the needle go in to my arm. Patient also stated, They did not try to wake me first to warn me. Patient wants to be discharged to home today as soon as possible. I educated patient on need to wait for appropriate discharge and not to leave A.M.A. if at all possible. Patient is agreeable at this time. Will inform day RN of patient's wishes and complaints.
[2019-04-08] MEDS: FUROsemide 10 mg/mL SDV 4mL 40 MG IVP (05:21)
[2019-04-08] MEDS: oxyCODONE 5 mg IR Tab/Cap 10 MG PO (05:29)
[2019-04-08] MEDS: guaiFENesin-dextromethorphan UDC 10 mL PO (05:30)
[2019-04-08 07:53] LABS: Glucose Point of Care 128 mg/dL (70-110)
[2019-04-08] MEDS: gabapentin 400 mg Capsule PO (09:23)
[2019-04-08] MEDS: metoprolol tartrate 50 mg Tablet PO (09:23)
[2019-04-08] MEDS: heparin 5,000 unit/mL INJ 1 mL 5000 UNIT SUBCUT (09:24)
[2019-04-08] MEDS: cholecalciferol (vitamin D3) 1,000 unit Tablet 1000 UNIT PO (09:24)
[2019-04-08] MEDS: ferrous sulfate EC 325 mg Tablet PO (09:24)
[2019-04-08] MEDS: pantoprazole DR 40 mg Tablet PO (09:24)
[2019-04-08] MEDS: lisinopril 20 mg Tablet PO (09:24)
[2019-04-08] MEDS: levothyroxine 50 mcg Tablet PO (09:24)
[2019-04-08] MEDS: sucralfate 1 gm Tablet PO (09:24)
[2019-04-08] MEDS: allopurinol 100 mg Tablet 200 MG PO (09:24)
[2019-04-08] MEDS: budesonide 0.5 mg/2 mL Neb INHALATION (09:26)
[2019-04-08] MEDS: ipratropium-albuterol 3 mL Neb INHALATION (09:27)
--- NOTE | 2019-04-08 09:49 | PC.SOCIAL ---
Pg 2 of IMM Pg 2 of IMM was explained to and signed by patient, copy was provided, and form placed in chart. He verbalized understanding and had no questions.
--- NOTE | 2019-04-08 10:43 | P.DS_ITS ---
Discharge Providers Date of Admission: 04/05/19 23:09 Date of Discharge: 04/08/19 Attending Provider at Admission: Merlyn Love MD Attending Provider at Discharge: Magdi Lu MD Primary Care Provider: GREG Hubbard Diagnoses at Discharge Discharge Diagnosis (1) Acute exacerbation of congestive heart failure: Status: Acute (2) Sleep apnea: Status: Acute (3) COPD exacerbation: Status: Acute (4) Hypercapnic respiratory failure: Status: Acute (5) LORI (acute kidney injury): Status: Acute (6) Hypothyroidism: Status: Acute Reason for Visit Reason for Visit: Reason For Visit: Exacerbation of CHF Hospital Course Discharge Summary: Nick Cooper is a 63 year old male carries diagnosis of preserved ejection fraction heart failure, hypothyroidism, obstructive sleep apnea, hypertension, morbid obesity, type 2 diabetes mellitus came in with chief complaint of shortness of breath for 3 days which has been progressively getting worse and at the day of admission was present at rest. He had been experiencing productive cough with yellow to greenish sputum production, he has not noticed any fever. He has sleep apnea and uses CPAP on on and off basis but not daily. He is compliant with his medications no problem with urination or bowel movements. He decided to go to his PCP clinic because he was very hypoxic on 6 L at baseline he is using 2 L, he decided to go to [facility] where he was diagnosed with CHF exacerbation and was transferred to [facility] on April 06. Patient was admitted to the cardiac stepdown unit for treatment of congestive heart failure which is most likely due to noncompliance to CPAP for obstructive sleep apnea along with multiple psychiatric medications and high-dose of pain medications causing him to be more somnolent in setting of acute kidney injury. His imaging in the ER was negative for any kind of infiltrate and his procalcitonin was within normal limits. He was started on IV diuresis for CHF and echocardiogram was done which showed an EF 55% with grade 3 diastolic dysfunction which is thought to be a little worse than his prior echocardiograms. His home antipsychotic and pain medications were adjusted as per his renal functions and patient and the family was counseled regarding need of being on lower dose of these medications. Patient's blood work was also consistent of iron deficiency anemia for which he was started on oral iron supplementation. During his hospitalization he was found to have slightly elevated blood pressures for which she was started on lisinopril which would also help him with afterload reduction in setting of congestive heart failure. Patient was educated and counseled regarding need of being on CPAP during night and when he is napping. Patient was counseled about better lifestyle modifications to prevent recurrent admissions due to CHF. CT chest revealed possible infiltrates in right lower zones which is more consistent with aspiration pneumonitis. As patient overall was feeling better and was requiring baseline oxygen supplementation he is being discharged in hemodynamically stable condition on oral Lasix with lower dose of his psychiatric and pain medications and oral Levaquin course for 7 days. Patient has been monitored on lower dose for more than 24 hours. Physical Exam Narrative: EXAM NARRATIVE: General: No acute distress, AO x3, morbidly obese, HEENT: PERRLA, pupils bilaterally equal and reactive Chest: Decreased breath sounds bilaterally lower zones, normal vesicular breath sounds, fine rhonchi all over the lung trejo right more than left posterior more than anterior but better than yesterday. CVS: S1-S2 regular, no murmurs, no tachycardia, no gallops, no rubs Abdomen: Soft, nontender, no organomegaly, bowel sounds present Neuro: No focal deficits, no facial deformity, AO x3, power 5/5 in all limbs Discharge Data Data Completed and Pending: Completed Studies During Hospitalization Category Date Time Status CT chest wo con 7 1250 Urgent Cat Scan 04/07/19 08:09 Completed CV echo complete* [id number] Routine Ultrasound 04/06/19 00:10 Completed Pending at discharge Category Date Time Status Comprehensive Met abolic Panel AM LA BS Lab 04/09/19 04:00 Ordered Immunochemical Fe aby OCB Routine Lab 04/07/19 14:40 Uncollected Labs from last 24 hours 04/08/19 04/08/19 04/07/19 07:15 04:01 20:23 Sodium 139 Potassium 3.4 L Chloride 95 L Carbon Dioxide 33 H Anion Gap 14.4 BUN 16 Creatinine 0.9 GFR Calculation 85.0 L Glucose 104 POC Glucose 128 144 Calcium 9.5 Total Bilirubin 0.4 AST 21 ALT 13 Alkaline Phosphata se 41 Total Protein 7.0 Albumin 2.9 L Globulin 4.1 04/07/19 04/07/19 16:22 11:45 Sodium Potassium Chloride Carbon Dioxide Anion Gap BUN Creatinine GFR Calculation Glucose POC Glucose 135 131 Calcium Total Bilirubin AST ALT Alkaline Phosphata se Total Protein Albumin Globulin Vitals: Last Vital Signs Temp 98.1 F 04/08/19 04:00 Pulse 104 H 04/08/19 09:39 Resp 18 04/08/19 09:31 BP 176/98 04/08/19 07:16 Pulse Ox 89 L 04/08/19 09:31 Discharge Plan Discharge Patient Disposition: Home, Self-Care Condition: Stable Prescriptions: New lisinopril 20 mg Tablet 20 mg PO DAILY Qty: 30 RF: 0 dextromethorphan-guaifenesin 10-100 mg/5 mL Syrup 10 ml PO Q4H PRN (Reason: Cough) Qty: 60 RF: 0 levofloxacin 500 mg tablet 500 mg PO DAILY 7 Days RF: 0 Continued albuterol sulfate 2.5 mg /3 mL (0.083 %) solution for nebulization 2.5 mg inhalation QID PRN (Reason: Shortness Of Breath) RF: 0 sucralfate 1 gram tablet 1 g PO TID RF: 0 amitriptyline 25 mg tablet 25 mg PO BEDTIME RF: 0 pantoprazole 40 mg tablet,delayed release (DR/EC) 40 mg PO DAILY RF: 0 testosterone 200 mg pellet 200 mg SUBCUT Q14D RF: 0 levothyroxine 50 mcg Tablet 50 mcg PO DAILY RF: 0 metoprolol tartrate 50 mg PO BID RF: 0 cholecalciferol (vitamin D3) 1,000 units capsule 1,000 units PO DAILY RF: 0 budesonide-formoterol inhaler 2 puff inhalation BID RF: 0 Changed cyclobenzaprine 10 mg tablet 10 mg PO TID PRN (Reason: muscle cramp) Qty: 0 RF: 0 alprazolam 0.5 mg tablet 0.25 - 0.5 mg PO DAILY PRN (Reason: anxiety) Qty: 0 RF: 0 gabapentin 800 mg Tablet 400 mg PO BID Qty: 30 RF: 0 furosemide 20 mg Tablet 40 mg PO BIDPC Qty: 60 RF: 0 ferrous sulfate 325 mg (65 mg iron) tablet,delayed release (DR/EC) 325 mg PO BIDWM Qty: 60 RF: 0 colchicine 0.6 mg Tablet 0.6 mg PO DAILY Qty: 30 RF: 0 oxycodone 15 MG tablet 10 mg PO Q6H PRN (Reason: Pain) Qty: 10 RF: 0 Discharge Orders: Discharge Order (Routine); Ordered 04/08/19 Ordered By: Magdi Lu Other Ambulatory Orders: DME: Nebulizer (Order) Location: None Selected Ordered By: Kaur Srinivasan DME: Oxygen (Order) Location: None Selected Ordered By: Magdi Lu Referrals: Merlyn Alberto MD [Physician] - 2 weeks (You have a cardiology followup with Dr. Albreto at [facility] on April 19 at 4:00pm. Any appointment changes, please give them a call at [phone]) Heather Montaño FNP [Primary Care Provider] - 2 weeks (You have a hospital followup with GREG Vicente at [facility] on April 22 at 10:00am. Any appointment changes, please call them at [phone]) Discharge Diet: Cardiac and Low Salt Discharge Activity: Resume usual activity Patient Instructions: COPD, Lisinopril (By mouth), Levofloxacin (By mouth), Dextromethorphan/Guaifenesin/Phenylephrine (By mouth), Heart Healthy Diet, Low Sodium Diet, Sleep Apnea Syndrome (DC), Acute Kidney Injury (DC), CHF Stoplight, COPD Stoplight Activity Restrictions/Additional Instructions: Pain medications have been adjusted to be better with your JONAH. Dosages have been decreased as discussed. Discharge Attestations Time Spent in Discharge Care*: greater than 30 min Specific Discharge Activities: Specific discharge activities: educating patient, educating and/or supporting family/caregiver and evaluating patient/reviewing data Status at Discharge: Cognitive status at discharge: cognitively intact , Behavioral status at discharge: cooperative , Functional status at discharge: independent ambulation Overall status at discharge: patient is progressing back to baseline Quality Metrics Clinical Quality Measures During this hospital stay, did patient experience: None Coding Level of Care Code Acute Pluck Trimmer for [facility] Fwd Diagnoses Acute exacerbation of congestive heart failure I50.9 Sleep apnea G47.30 COPD exacerbation J44.1 Hypercapnic respiratory failure J96.92 LORI (acute kidney injury) N17.9 Hypothyroidism E03.9
[2019-04-08 11:41] LABS: Glucose Point of Care 114 mg/dL (70-110)
--- NOTE | 2019-04-08 15:34 | PM.PN ---
Subjective Subjective: Interval history: Nick wants to go home today. He is still short of breath and coughing but feels as though he is much better. There have been no significant events overnight. Medications: Reviewed: Yes Vitals/I&O/Wt Last Vital Signs Temp 98.2 F 04/08/19 11:00 Pulse 77 04/08/19 11:00 Resp 18 04/08/19 11:00 BP 177/91 04/08/19 11:00 Pulse Ox 83 L 04/08/19 13:34 04/08/19 04/08/19 04/08/19 06:59 14:59 22:59 Intake Total 640 / 1360 380 / 380 Output Total 1300 / 1300 Balance -660 / 60 380 / 380 Weight last 48 hrs Weight 307 lb 12.8 oz Weight 307 lb 12.8 oz Physical Exam Narrative: EXAM NARRATIVE: GENERAL: In general he is short of breath at rest with cough HEENT: Exam within normal limits. NECK: Supple without jugular vein distention. The carotid upstroke is normal without bruits. BACK: Exam normal. LUNGS: Decreased breath sounds bilaterally. Wheezes. HEART: Regular rate and rhythm. ABDOMEN: Benign without organomegaly or tenderness. EXTREMITIES: No edema. NEUROLOGIC: Exam normal. SKIN: Unremarkable. Data : 04/07/19 06:27 04/08/19 04:01 A&P Assessment and plan (1) Type 2 diabetes mellitus: Status: Acute Code(s): E11.9 - Type 2 diabetes mellitus without complications (2) HTN (hypertension): Status: Acute Code(s): I10 - Essential (primary) hypertension (3) Tobacco abuse: Status: Acute Code(s): Z72.0 - Tobacco use (4) Hypothyroidism: Status: Acute Code(s): E03.9 - Hypothyroidism, unspecified (5) LORI (acute kidney injury): Status: Acute Code(s): N17.9 - Acute kidney failure, unspecified (6) Hypercapnic respiratory failure: Status: Acute Code(s): J96.92 - Respiratory failure, unspecified with hypercapnia (7) COPD exacerbation: Status: Acute Code(s): J44.1 - Chronic obstructive pulmonary disease with (acute) exacerbation (8) Sleep apnea: Status: Acute Code(s): G47.30 - Sleep apnea, unspecified (9) Acute exacerbation of congestive heart failure: Status: Acute Code(s): I50.9 - Heart failure, unspecified Additional A&P Information He seems to be better compensated. Currently on a beta-toni, intravenous Lasix and lisinopril. Obviously he will need to be switched over to Lasix by mouth prior to discharge. His blood pressure is still high despite my starting him on 20 of lisinopril yesterday. BUN and creatinine are within normal range. I would increase his lisinopril to 40 mg daily. Attestations Medical Necessity Statement*: Not applicable Coding Level of Care Code Acute Regional Director Of Admissions for g Fwd History Detailed Exam Detailed Medical Decision Making Moderate Complexity Diagnoses Type 2 diabetes mellitus E11.9 HTN (hypertension) I10 Tobacco abuse Z72.0 Hypothyroidism E03.9 LORI (acute kidney injury) N17.9 Hypercapnic respiratory failure J96.92 COPD exacerbation J44.1 Sleep apnea G47.30 Acute exacerbation of congestive heart failure I50.9 Time Spent (min) 38
--- NOTE | 2019-04-08 16:56 | PC.NURSE ---
PATIENT AND GIVEN DISCHARGE INSTRUCTIONS AND VERBALIZED UNDERSTANDING ; VSS ; IV REMOVED AND PRESSURE DRESSING APPLIED WITH NO BLEEDING NOTED ; PATIENT DENIES ANY CHEST PRESSURE OR INCREASE IN SOB ; PATIENT TO EXIT WITH O2 VIA WHEELCHAIR TO POV WITH NO ISSUES
[2019-04-13 10:11] LABS: Glucose Point of Care 122 mg/dL (70-110)
== END 2019-04-08 16:59 | disposition home or self-care (01) | DRG 291 ==
PROVIDERS: Student in an Organized Health Care Education/Training Program; Admitting Provider Internal Medicine; Family Provider Nurse Practitioner; PCP Nurse Practitioner; Visit Provider Student in an Organized Health Care Education/Training Program
DX: I11.0 Hypertensive heart disease with heart failure (principal); J96.02 Acute respiratory failure with hypercapnia; J69.0 Pneumonitis due to inhalation of food and vomit; J44.1 Chronic obstructive pulmonary disease with (acute) exacerbation; N17.9 Acute kidney failure, unspecified; E03.9 Hypothyroidism, unspecified; G47.33 Obstructive sleep apnea (adult) (pediatric); F41.9 Anxiety disorder, unspecified; E66.01 Morbid (severe) obesity due to excess calories; M19.90 Unspecified osteoarthritis, unspecified site; E11.42 Type 2 diabetes mellitus with diabetic polyneuropathy; Z96.641 Presence of right artificial hip joint; Z96.651 Presence of right artificial knee joint; Z87.891 Personal history of nicotine dependence; I44.7 Left bundle-branch block, unspecified; Z91.19 Patient's noncompliance with other medical treatment and regimen; D50.9 Iron deficiency anemia, unspecified
CPT/HCPCS: 12345; 36415; 36416; 71250; 80053; 82962; 83036; 83540; 83550; 83735; 83880; 84145; 84443; 85025; 87804; 93306; 94640; 94664; 96372; 96375; J1644; J1756; J1940; J7626

== ENCOUNTER 2019-04-06 | Day surgery (SDC) | payer OTHER, MEDICARE, SELFPAY ==
--- NOTE | 2019-04-05 20:37 | P.HP_ITS ---
Providers/Chief Complaint Primary Care Provider: GREG Hubbard History of Present Illness Nick Cooper is a 63 year old male who carries diagnosis of preserved ejection fraction heart failure, morbid obesity, sleep apnea, hypothyroidism, chronic microcytic iron deficiency anemia, type 2 diabetes, presented with chief complaint of shortness of breath. Medications/Allergies Home Medications Medication Instructions Recorded Confirmed Last Taken Type albuterol sulfate 2.5 mg INHALATION QID PRN 04/05/19 04/05/19 Unknown History allopurinol 200 mg PO DAILY 04/05/19 04/05/19 Unknown History alprazolam 0.5 mg PO TID 04/05/19 04/05/19 Unknown History amitriptyline 25 mg PO BEDTIME 04/05/19 04/05/19 Unknown History cholecalciferol (vitamin D3) 10,000 unit PO DAILY 04/05/19 04/05/19 Unknown History cyclobenzaprine 10 mg PO TID 04/05/19 04/05/19 Unknown History ferrous sulfate 325 mg PO DAILY 04/05/19 04/05/19 Unknown History fluticasone propionate [Flovent 2 puff INHALATION BID PRN 04/05/19 04/05/19 Unknown History HFA] furosemide 40 mg PO DAILY 04/05/19 04/05/19 Unknown History gabapentin 800 mg PO TID 04/05/19 04/05/19 Unknown History gemfibrozil 600 mg PO BID 04/05/19 04/05/19 Unknown History levothyroxine 50 mcg PO DAILY 04/05/19 04/05/19 Unknown History lorazepam 0.5 mg PO BID PRN 04/05/19 04/05/19 Unknown History metformin 500 mg PO BID 04/05/19 04/05/19 Unknown History oxycodone 15 mg PO 5XD PRN 04/05/19 04/05/19 Unknown History pantoprazole 40 mg PO DAILY 04/05/19 04/05/19 Unknown History potassium chloride 20 meq PO DAILY 04/05/19 04/05/19 Unknown History sildenafil 100 mg PO DAILY PRN 04/05/19 04/05/19 Unknown History sucralfate 1 g PO QID 04/05/19 04/05/19 Unknown History testosterone 200 mg SUBCUT Q14D 04/05/19 04/05/19 Unknown History tiotropium bromide [Spiriva with 18 mcg INHALATION BID 04/05/19 04/05/19 Unknown History HandiHaler] Allergies Allergy/AdvReac Type Severity Reaction Status Date / Time ibuprofen [From Motrin] Allergy Unknown Verified 04/05/19 07:10 Influenza Virus Vaccines Allergy ALGY-Hives Verified 04/05/19 23:29 latex Allergy ALGY-Rash Verified 04/05/19 07:10 PFSH Acute PFSH: Statuses (acute, chronic, etc) shown below reflect problem list status as previously entered and may not be historically accurate Medical History (Updated 04/05/19 @ 20:51 by Merlyn Love MD) Anemia (Acute) Anxiety (Acute) CHF (congestive heart failure) (Acute) Chronic prescription opiate use (Acute) Diverticulosis (Acute) Duodenitis (Acute) Erectile dysfunction (Acute) Gastric ulcer (Acute) Heart failure with preserved ejection fraction (Acute) Hemoptysis (Acute) HTN (hypertension) (Acute) Hx of diverticulitis of colon (Acute) Hypothyroidism (Acute) Lumbar stenosis (Acute) Microcytic anemia (Acute) Morbid obesity (Acute) Obesity (Acute) Osteoarthritis (Acute) Peripheral neuropathy (Acute) Rotator cuff tear, right (Acute) Sleep apnea (Acute) Spinal cord stimulator status (Acute) Type 2 diabetes mellitus (Acute) Surgical History (Updated 04/05/19 @ 20:40 by Merlyn Love MD) History of back surgery (Acute) History of surgery on left wrist (Acute) History of total right hip replacement (Acute) History of total right knee replacement (Acute) Hx of circumcision (Acute) Family History (Updated 04/05/19 @ 20:42 by Merlyn Love MD) Grandfather Cancer Throat cancer Social History (Updated 04/05/19 @ 20:42 by Merlyn Love MD) Smoking and tobacco status: former smoker Alcohol intake: current Alcohol intake frequency: few times a week Household members: spouse Housing: House Coding Level of Care Code Acute Acid Polymerization Operator for Candace Morris
--- NOTE | 2019-04-06 01:15 | ECG_ITS ---
Measurements Intervals [place] Rate: 102 P: 60 WV: 193 QRS: -35 QRSD: 154 T: 39 QT: 360 QTc: 471 SINUS TACHYCARDIA MARKED LEFT AXIS DEVIATION [QRS AXIS < -30] LEFT BUNDLE BRANCH BLOCK [120+ ms QRS DURATION, 80+ ms Q/S IN V1/V2, 85+ ms R IN I/aVL/V5/V6] Compared to ECG 12/09/2018 06:10:46 Left-axis deviation now present Left bundle-branch block now present Sinus rhythm no longer present Intraventricular conduction delay no longer present T-wave abnormality no longer present Possible ischemia no longer present Electronically Signed On 04-06-2019 18:36:31 BOTTLE DEALER by Merlyn Alberto M.D. [email or web address]
== END 2019-04-06 23:00 | disposition home or self-care (01) ==
LOC: GILAB 10-24 13:33
PROVIDERS: Family Provider Nurse Practitioner; PCP Nurse Practitioner; Visit Provider Surgery
PROC: 0DJ08ZZ Inspection of Upper Intestinal Tract, Via Natural or Artificial Opening Endoscopic (ICD-10-PCS; CPT 43235; principal; 2019-04-06 07:00)
DX: Z53.9 Procedure and treatment not carried out, unspecified reason (principal); K25.3 Acute gastric ulcer without hemorrhage or perforation
CPT/HCPCS: 93005; J7030